=== PATIENT | female | born 1990 | race Caucasian/White ===

== ENCOUNTER 2016-12-06 20:18 | Emergency (ER) | payer MEDICAID ==
[~2016-12-06] VITALS: Ht 172.7 cm; Wt 61.0 kg
[~2016-12-06 20:18] MED LIST: IBUP600 PO; PERI8.6T PO; Z.0.NO CURRENT MEDS
[2016-12-06 20:19] VITALS: BP 125/78; PULSE 94; RESP 16; TEMP 98.2; O2SAT 98
[2016-12-06 20:25] VITALS: RESP 16; O2SAT 98
--- NOTE | 2016-12-06 20:54 | PD ---
HPI Chief Complaint: Abdominal Pain Time Seen by Provider: 20:37 Travel History International Travel<30 days: No Contact w/Intl Traveler<30days: No Traveled to known affect area: No History of Present Illness HPI The patient is a 26 year old female who presents to the [facility] emergency department with a history of abdominal pain that she reports has intermittently been present for months, however today was more persistent and gradually getting worse throughout the day. She denies any effect with eating. She reports that in the past she was diagnosed with liver inflammation as the cause related to hepatitis C. She reports that she is in the process of getting evaluated for treatment. She denies ever having an ultrasound of her gallbladder or liver in the past. The patient reports that she has a history of IV drug use. She has been clean for the last month however she did have one episode of relapse a few days ago. The patient reports that the pain is in the midepigastric area and radiates to bilateral upper quadrants of the abdomen. She reports the pain is sharp in character. The patient denies any known alleviating or aggravating factors. She denies having any recent history of acid reflux or heartburn. The patient denies having any constipation. She last moved her bowels earlier today. She denies having any change in the color of her stool. The patient denies having any jaundice per The patient denies any recent fevers, cough, congestion, neck pain, chest pain, shortness of breath , vomiting, diarrhea, urinary symptoms, or neurologic symptoms. LMP: Unknown, however the patient denies any possibility of being . She reports that her periods are irregular related to having an IUD placed. [facility] Past Medical History Narrative Medical The patient's past medical history is significant for IV drug use, currently clean for the last month. The patient has a history of hepatitis C. ?: Not LMP: IUD Past Surgical History Narrative Surgical The patient's past surgical history is reportedly none. Social History Alcohol Use: No Tobacco Use: No Substance Use: Yes (Dilaudid iv use last a few days ago with accidental relapse ) Allergies-Medications (Allergen,Severity, Reaction): Coded Allergies: No Known Allergies (Verified , 12/06/16) Reported Meds & Prescriptions Reported Meds & Active Scripts Active Yohana-Colace 8.6-50 mg (Sennosides-Docusate Sodium) 1 Tab Tab 2 Tab PO Q12H PRN Motrin 600 Mg Tab (Ibuprofen) 600 Mg Tab 600 Mg PO Q6H PRN Reported No Current Meds (Miscellaneous Medication) Misc Review of Systems Except as stated in HPI: all other systems reviewed are Neg General / Constitutional: No: Fever Eyes: No: Visual changes HENT: No: Headaches Cardiovascular: No: Chest Pain or Discomfort Respiratory: No: Shortness of Breath Gastrointestinal: Positive: Abdominal Pain, No: Nausea, Vomiting, Diarrhea, Hematemesis, Changes in Bowel Habits, Indigestion, Loss of Appetite Genitourinary: No: Dysuria Musculoskeletal: No: Pain Skin: No Rash Neurologic: No: Weakness Psychiatric: No: Depression Endocrine: No: Polydipsia Hematologic/Lymphatic: No: Easy Bruising Physical Exam Narrative General: The patient is a well-developed well-nourished female in no acute distress. Head and Neck exam: Head is normocephalic atraumatic. Eyes: EOMI, pupils are equal round and reactive to light. Nose: Midline septum with pink mucous membranes Mouth: Dentition unremarkable. Moist mucus membranes. Posterior oropharynx is not erythematous. No tonsillar hypertrophy. Uvula midline. Airway patent. Neck: No palpable lymphadenopathy. No nuchal rigidity. No thyromegaly. Cardiovascular: Regular rate and rhythm without murmurs, gallops, or rubs. Lungs: Clear to auscultation bilaterally. No wheezes, rhonchi, or rales. Abdomen: Soft, with tenderness on palpation of the midepigastric area and bilateral upper quadrants of the abdomen. No guarding, rebound, or rigidity. No tenderness on palpation of McBurney's point. Extremities: No clubbing, cyanosis, or edema. No calf tenderness on palpation. Back: No spinous process tenderness to palpation. No costovertebral angle tenderness to palpation. Neurologic Exam: Grossly nonfocal. Skin Exam: No rash noted. Intact skin that is warm and dry. Data Data Last Documented VS Vital Signs Date Time Temp Pulse Resp B/P Pulse Ox O2 Delivery O2 Flow Rate FiO2 12/06/16 20:25 16 98 Room Air 12/06/16 20:19 98.2 94 125/78 Orders Complete Blood Count With Diff (12/06/16 20:37) Comprehensive Metabolic Panel (12/06/16 20:37) C-Reactive Protein (Crp) (12/06/16 20:37) Lipase (12/06/16 20:37) Urinalysis - C+S If Indicated (12/06/16 20:37) Iv Access Insert/Monitor (12/06/16 20:37) Ecg Monitoring (12/06/16 20:37) Oximetry (12/06/16 20:37) Ed Urine Pregnancytest Poc (12/06/16 20:37) Us Abdomen Gallbladder (12/06/16 20:46) Sodium Chlor 0.9% 1000 Ml Inj (Ns 1000 M (12/06/16 21:00) Ondansetron Inj (Zofran Inj) (12/06/16 21:00) Pantoprazole Inj (Protonix Inj) (12/06/16 21:00) Labs Laboratory Tests Test 12/06/16 20:45 White Blood Count 12.3 TH/MM3 Red Blood Count 4.38 MIL/MM3 Hemoglobin 13.8 GM/DL Hematocrit 39.0 % Mean Corpuscular Volume 89.2 FL Mean Corpuscular Hemoglobin 31.5 PG Mean Corpuscular Hemoglobin 35.4 % Concent Red Cell Distribution Width 15.3 % Platelet Count 215 TH/MM3 Mean Platelet Volume 8.7 FL Neutrophils (%) (Auto) 69.1 % Lymphocytes (%) (Auto) 24.4 % Monocytes (%) (Auto) 5.4 % Eosinophils (%) (Auto) 0.6 % Basophils (%) (Auto) 0.5 % Neutrophils # (Auto) 8.5 TH/MM3 Lymphocytes # (Auto) 3.0 TH/MM3 Monocytes # (Auto) 0.7 TH/MM3 Eosinophils # (Auto) 0.1 TH/MM3 Basophils # (Auto) 0.1 TH/MM3 CBC Comment DIFF FINAL Differential Comment Sodium Level 140 MEQ/L Potassium Level 4.2 MEQ/L Chloride Level 105 MEQ/L Carbon Dioxide Level 27.0 MEQ/L Anion Gap 8 MEQ/L Blood Urea Nitrogen 11 MG/DL Creatinine 1.04 MG/DL Estimat Glomerular Filtration 65 ML/MIN Rate Random Glucose 88 MG/DL Calcium Level 9.1 MG/DL Total Bilirubin 0.4 MG/DL Aspartate Amino Transf 23 U/L (AST/SGOT) Alanine Aminotransferase 47 U/L (ALT/SGPT) Alkaline Phosphatase 52 U/L C-Reactive Protein LESS THAN 0.29 MG/DL Total Protein 7.9 GM/DL Albumin 4.0 GM/DL Lipase 177 U/L MDM Medical Decision Making Medical Screen Exam Complete: Yes Emergency Medical Condition: Yes Medical Record Reviewed: Yes Interpretation(s) Last Impressions Gall Bladder Ultrasound 12/06/162045 Signed Impressions: Service Date/Time: Tuesday, December 06, 2016 21:18 - CONCLUSION: Normal right upper quadrant ultrasound. Pasha Lewis MD Differential Diagnosis Worsening hepatic inflammation related to hepatitis C, versus biliary colic, versus pancreatitis, versus peptic ulcer disease, versus gastritis, versus acid reflux Narrative Course During the course of the patients emergency department visit, the patients history, examination, and differential diagnosis were reviewed with the patient. The patient had IV access obtained and blood work sent for analysis. The patient was placed on a court monitor with oximetry and blood pressure monitoring. An ultrasound of the liver/gallbladder has been ordered. The patient was provided normal saline 1 L IV fluid bolus, Zofran 4 mg IV, Protonix 40 mg IV. The patients laboratory studies were reviewed and remarkable for a white count 12.3, hemoglobin 13.8, platelets 2:15 with a normal differential, CMP is remarkable for creatinine of 1.04, lipase 177, C-reactive protein less than 0.29. Radiology studies were reviewed and remarkable for an ultrasound of the right upper quadrant that showed no acute abnormality. I suspect that the patient's symptoms are related to a component of gastritis given the location of the pain and the fact that otherwise her workup is unremarkable. The patient will be given a prescription for omeprazole. The patient was instructed to follow-up with her residential leasing agent as previously scheduled to start on her hepatitis C treatment. The patient is resting comfortably and feels better, is alert and in no distress. The patients results and examination findings were discussed with the patient. The repeat examination is unremarkable and benign. The history, exam, diagnostic testing, and current condition do not suggest any significant pathology to warrant further testing, continued ED treatment, admission, or surgical evaluation at this point. The vital signs have been stable. The patient does not have uncontrollable pain, intractable vomiting, or other significant symptoms. The patient's condition is stable and appropriate for discharge. The patient will pursue further outpatient evaluation with a primary care physician or other designated or consulting physician as indicated in the discharge instructions. The patient expressed understanding and was agreeable with this plan. Diagnosis Primary Impression: Abdominal pain Qualified Code: R10.13 - Epigastric pain Referrals: [facility] 1 week Primary Care Physician 3 days Patient Instructions: Abdominal Pain (ED), General Instructions Med/Other Pt SpecificInfo: Prescription(s) given Scripts Omeprazole 20 Mg Tab20 Mg PO DAILY #30 TAB Ref 0 Prov:Ilana Nava MD 12/06/16 Disposition: 01 DISCHARGE HOME Condition: Stable Ilana Nava MD Dec 06, 2016 20:54
[2016-12-06] MEDS ORDERED: ONDANSETRON HCL 4 MG/2 ML VIAL IV ONE (21:00)
[2016-12-06] MEDS ORDERED: PANTOPRAZOLE SODIUM 40 MG VIAL IV PUSH ONE (21:00)
[2016-12-06] MEDS ORDERED: SODIUM CHLOR 0.9% 1000 ML INJ 1,000 ML IV ONE (21:00)
[2016-12-06 21:06] LABS: AUTOMATED NEUTROPHIL # 8.5 TH/MM3 (1.8-7.7); BASOPHIL # 0.1 TH/MM3 (0-0.2); BASOPHIL % 0.5 % (0.0-2.0); EOSINOPHIL # 0.1 TH/MM3 (0-0.4); EOSINOPHIL % 0.6 % (0.0-4.0); HEMO FLAGS DIFF FINAL; LYMPH % 24.4 % (9.0-44.0); MEAN CELL VOLUME 89.2 FL (80.0-100.0); MEAN CORPUSCULAR HEMOGLOBIN 31.5 PG (27.0-34.0); MEAN CORPUSCULAR HGB CONC 35.4 % (32.0-36.0); MONO % 5.4 % (0.0-8.0); NEUT % 69.1 % (16.0-70.0); PLATELET COUNT 215 TH/MM3 (150-450); RED BLOOD COUNT 4.38 MIL/MM3 (4.00-5.30); RED CELL DISTRIBUTION WIDTH 15.3 % (11.6-17.2); WHITE BLOOD COUNT 12.3 TH/MM3 (4.0-11.0)
--- NOTE | 2016-12-06 21:50 | RADRPT ---
EXAM DATE/TIME: 12/06/2016 21:18 [facility] COMPARISON: No previous studies available for comparison. INDICATIONS : Right upper quadrant pain. MEDICAL HISTORY : Hepatitis C. Abdominal pain. IUD. IV drug abuse. SURGICAL HISTORY : None. ENCOUNTER: Initial ACUITY: 1 day PAIN SCORE: 7/10 LOCATION: Right upper quadrant MEASUREMENTS: LIVER: 16.8 cm length COMMON DUCT: 4 mm RIGHT KIDNEY: 10.4 x 4.2 x 5.1 cm FINDINGS: LIVER: Normal echotexture without focal lesion or ductal dilatation. COMMON DUCT: No intraluminal mass or stone visualized. GALLBLADDER: Contracted. No stones. No wall thickening or pericholecystic fluid. PANCREAS: The visualized portions are within normal limits. RIGHT KIDNEY: No evidence of hydronephrosis, stone, or mass. CONCLUSION: Normal right upper quadrant ultrasound. Pasha Lewis MD on December 06, 2016 at 21:48 Board Certified Radiologist. This report was verified electronically.
[2016-12-06 21:53] LABS: ALKALINE PHOSPHATASE 52 U/L (45-117); ALT (GPT) 47 U/L (10-53); ANION GAP 8 MEQ/L (5-15); AST (GOT) 23 U/L (15-37); BLOOD UREA NITROGEN 11 MG/DL (7-18); CHLORIDE 105 MEQ/L (98-107); GLOMERULAR FILTRATION RATE 65 ML/MIN (>89); SODIUM (NA) 140 MEQ/L (136-145); TOTAL BILIRUBIN ADULT 0.4 MG/DL (0.2-1.0)
[2016-12-06 21:57] LABS: POTASSIUM 4.2 MEQ/L (3.5-5.1)
[2016-12-06] MEDS ORDERED: OMEP20TA PO (22:39)
== END 2016-12-06 23:39 | disposition home or self-care (01) ==
LOC: NEPE 20:18
DX: R10.9 Unspecified abdominal pain (principal); B19.20 Unspecified viral hepatitis C without hepatic coma
CPT/HCPCS: 76705; 80053; 83690; 84703; 85025; 86140; 96361; 96374; 96375; 99284; C9113; J2405; J7030

== ENCOUNTER 2017-02-05 10:18 | Emergency (ER) | payer MEDICAID ==
[~2017-02-05] VITALS: Ht 172.7 cm; Wt 61.5 kg
[~2017-02-05 10:18] MED LIST changes: +OMEP20TA PO
[2017-02-05 10:19] VITALS: BP 128/75; PULSE 97; RESP 20; TEMP 98; O2SAT 99
[2017-02-05] MEDS ORDERED: KETOROLAC TROMETHAMINE 30 MG/ML (IVP) VIAL IV PUSH ONE (11:15)
--- NOTE | 2017-02-05 11:17 | PD ---
HPI Chief Complaint: Musculoskeletal Complaint Time Seen by Provider: 11:12 Travel History International Travel<30 days: No Contact w/Intl Traveler<30days: No Traveled to known affect area: No History of Present Illness HPI 26-year-old female presents to the emergency Department with complaint of low back pain for the last 3-4 months. History of IV drug use. Last used and injected Dilaudid one month ago. Is in a sober living house and has been clean for 1 month. The back pain is midline and right-sided. She denies fever, chills, nausea, vomiting. Denies abdominal pain, dysuria, urgency, frequency. Denies paresthesias, loss of sensation, decreased range of motion, decreased strength to bilateral lower extremities. Denies encopresis, incontinence, saddle anesthesias. Ambulatory with a normal gait. Reports feeling numbness and tingling in her right buttocks at times. Has been taking ibuprofen with some relief of pain. Pain is aggravated with movement and palpation. No known allergies. No other medical complaints. No other modifying factors or associated signs and symptoms. PFSH Past Medical History Hepatitis: Yes ?: Not Social History Alcohol Use: No Tobacco Use: Yes Substance Use: Yes (Dilaudid iv use last a few days ago with accidental relapse ) Allergies-Medications (Allergen,Severity, Reaction): Coded Allergies: No Known Allergies (Verified , 12/06/16) Reported Meds & Prescriptions Reported Meds & Active Scripts Active Omeprazole 20 Mg Tab 20 Mg PO DAILY Yohana-Colace 8.6-50 mg (Sennosides-Docusate Sodium) 1 Tab Tab 2 Tab PO Q12H PRN Motrin 600 Mg Tab (Ibuprofen) 600 Mg Tab 600 Mg PO Q6H PRN Reported No Current Meds (Miscellaneous Medication) [facility] Review of Systems Except as stated in HPI: all other systems reviewed are Neg Physical Exam Narrative GENERAL: Well-nourished, well-developed female patient, in no acute distress SKIN: Warm and dry. HEAD: Atraumatic. Normocephalic. EYES: Pupils equal and round. No scleral icterus. No injection or drainage. ENT: Mucosa pink and moist. Airway patent. NECK: Trachea midline. CARDIOVASCULAR: Regular rate. RESPIRATORY: No accessory muscle use. GASTROINTESTINAL: Flat. MUSCULOSKELETAL: Bilateral lower extremities supple and non-tense with 2+ pedal pulses and sensory intact; with full range of motion and 5/5 strength. Active dorsiflexion and extension of bilateral feet. Bilateral straight leg raise is positive for low back pain. Ambulatory with normal gait. Sitting up in bed at 90. No obvious deformities. No clubbing. No cyanosis. No edema. BACK: Midline point tenderness on palpation of the lumbar spine. Tenderness on palpation of right iliosacral area. No obvious deformities. NEUROLOGICAL: Awake and alert. Oriented 3. No obvious cranial nerve deficits. Motor grossly within normal limits. Normal speech. Moves all extremities. 5/5 strength to all extremities. Sensory intact. PSYCHIATRIC: Appropriate mood and affect; insight and judgment normal. Data Data Last Documented VS Vital Signs Date Time Temp Pulse Resp B/P Pulse Ox O2 Delivery O2 Flow Rate FiO2 02/05/17 10:19 98.0 97 20 128/75 99 Room Air MDM Medical Decision Making Medical Screen Exam Complete: Yes Emergency Medical Condition: Yes Medical Record Reviewed: Yes Differential Diagnosis Sciatica, low back pain, spinal abscess Narrative Course 26-year-old female with history of IV drug use with midline point tenderness on palpation of the lumbar spine and with complaint of low back pain for the last 3 -4 months. Last injected Dilaudid one month ago. Is currently in a sober living house and has been clean for 1 month. Denies fever, chills, nausea, vomiting. Denies encopresis, incontinence, saddle anesthesias. Patient is ambulatory in the room with normal gait. I discussed the patient with my attending physician, Dr. Delgado, and he recommended MRI to rule out spinal abscess secondary to IV drug use. Patient will be moved to a medical bed for further treatment and evaluation. CBC, BMP, ESR, CRP ordered. Urine ordered. MRI of the lumbar, thoracic, cervical spine ordered. Toradol ordered. 1115: Patient moved to medical bed and Dr. Delgado will assume care of the patient at this time. See his note for final disposition. Maribel Kessler Feb 05, 2017 11:16
[2017-02-05 12:01] LABS: AUTOMATED NEUTROPHIL # 3.8 TH/MM3 (1.8-7.7); BASOPHIL % 0.6 % (0.0-2.0); EOSINOPHIL # 0.1 TH/MM3 (0-0.4); EOSINOPHIL % 1.2 % (0.0-4.0); HEMATOCRIT 39.6 % (35.0-46.0); HEMO FLAGS DIFF FINAL; LYMPH % 31.9 % (9.0-44.0); MEAN CELL VOLUME 91.1 FL (80.0-100.0); MEAN CORPUSCULAR HEMOGLOBIN 31.6 PG (27.0-34.0); MEAN CORPUSCULAR HGB CONC 34.7 % (32.0-36.0); MONO % 5.5 % (0.0-8.0); NEUT % 60.8 % (16.0-70.0); PLATELET COUNT 151 TH/MM3 (150-450); RED BLOOD COUNT 4.34 MIL/MM3 (4.00-5.30); RED CELL DISTRIBUTION WIDTH 13.9 % (11.6-17.2); WHITE BLOOD COUNT 6.3 TH/MM3 (4.0-11.0)
[2017-02-05 12:14] LABS: BLOOD, URINE NEG (NEG); GLUCOSE,URINE NEG (NEG); KETONE, URINE NEG (NEG); PH, URINE 7.5 (5.0-8.5); SQUAMOUS EPITHELIAL CELL URINE 1 /hpf (0-5); TRANSITIONAL EPI CELLS, URINE <1 /hpf; URINE COLOR YELLOW (YELLW/STRAW)
[2017-02-05 12:19] LABS: NITRITE,URINE POS (NEG)
[2017-02-05 12:20] LABS: BACTERIA, URINE MOD /hpf; COMMENT (UR) CULTURE INDICATED; CULTURE IF INDICATED CULTURE INDICATED
[2017-02-05 12:22] LABS: ANION GAP 4 MEQ/L (5-15); BICARBONATE 29.7 MEQ/L (21.0-32.0); BLOOD UREA NITROGEN 10 MG/DL (7-18); CHLORIDE 105 MEQ/L (98-107); GLOMERULAR FILTRATION RATE 79 ML/MIN (>89); POTASSIUM 4.1 MEQ/L (3.5-5.1); SODIUM (NA) 139 MEQ/L (136-145)
--- NOTE | 2017-02-05 13:55 | RADRPT ---
EXAM DATE/TIME: 02/05/2017 12:27 [facility] COMPARISON: No previous studies available for comparison. INDICATIONS : Low back and Right leg pain. CONTRAST: 10 cc Omniscan (gadodiamide) IV MEDICAL HISTORY : IVDA. SURGICAL HISTORY : None. ENCOUNTER: Initial ACUITY: 1 day PAIN SCORE: 6/10 LOCATION: [facility] TECHNIQUE: Screening MRI of the entire spinal axis was performed in the sagittal and axial planes. FINDINGS: No focal bone lesion is seen. The vertebral bodies are normal in height. There is normal alignment in the sagittal plane. It is producing dextrocurvature of the upper thoracic spine and levocurvature of the lower thoracic spine. There does appear to be a dextrocurvature of the thoracolumbar region. The re is a right lateral recess disc protrusion at the L5-S1 level. This abuts the right S1 nerve root i n the lateral recess region. CONCLUSION: Right lateral recess disc protrusion at the L5-S1 level abutting the right S1 nerve root. A screening MRI examination is typically used to evaluate diffuse bony processes. Pasha Vicente MD on February 05, 2017 at 13:46 Board Certified Radiologist. This report was verified electronically.
[2017-02-05] MEDS ORDERED: GADODIAMIDE PF 287 MG/ML 10 ML VIAL (for RAD MRI) IV ONE (14:15)
--- NOTE | 2017-02-05 14:19 | PD ---
Data Data Last Documented VS Vital Signs Date Time Temp Pulse Resp B/P Pulse Ox O2 Delivery O2 Flow Rate FiO2 02/05/17 10:19 98.0 97 20 128/75 99 Room Air Orders Basic Metabolic Panel (Bmp) (02/05/17 11:08) Complete Blood Count With Diff (02/05/17 11:08) Westergren Sedimentation Rate (02/05/17 11:08) C-Reactive Protein (Crp) (02/05/17 11:08) Ketorolac Inj (Toradol Inj) (02/05/17 11:15) Iv Access Insert/Monitor (02/05/17 11:08) Ed Urine Pregnancytest Poc (02/05/17 11:08) Urinalysis - C+S If Indicated (02/05/17 11:17) Urine Culture (02/05/17 11:25) Mri Screening Spine W&W/O Cont (02/05/17 ) Gadodiamide Pf Inj (Omniscan Pf Inj) (02/05/17 14:15) Labs Laboratory Tests Test 02/05/17 02/05/17 11:25 11:30 Urine Color YELLOW Urine Turbidity CLEAR Urine pH 7.5 Urine Specific [place] 1.010 Urine Protein NEG mg/dL Urine Glucose (UA) NEG mg/dL Urine Ketones NEG mg/dL Urine Occult Blood NEG Urine Nitrite POS Urine Bilirubin NEG Urine Urobilinogen LESS THAN 2.0 MG/DL Urine Leukocyte Esterase NEG Urine RBC 2 /hpf Urine WBC 2 /hpf Urine Squamous Epithelial 1 /hpf Cells Urine Transitional Epithelial <1 /hpf Cells Urine Bacteria MOD /hpf Microscopic Urinalysis Comment CULTURE INDICATED White Blood Count 6.3 TH/MM3 Red Blood Count 4.34 MIL/MM3 Hemoglobin 13.7 GM/DL Hematocrit 39.6 % Mean Corpuscular Volume 91.1 FL Mean Corpuscular Hemoglobin 31.6 PG Mean Corpuscular Hemoglobin 34.7 % Concent Red Cell Distribution Width 13.9 % Platelet Count 151 TH/MM3 Mean Platelet Volume 9.1 FL Neutrophils (%) (Auto) 60.8 % Lymphocytes (%) (Auto) 31.9 % Monocytes (%) (Auto) 5.5 % Eosinophils (%) (Auto) 1.2 % Basophils (%) (Auto) 0.6 % Neutrophils # (Auto) 3.8 TH/MM3 Lymphocytes # (Auto) 2.0 TH/MM3 Monocytes # (Auto) 0.3 TH/MM3 Eosinophils # (Auto) 0.1 TH/MM3 Basophils # (Auto) 0.0 TH/MM3 CBC Comment DIFF FINAL Differential Comment Erythrocyte Sedimentation Rate 8 mm/hr Sodium Level 139 MEQ/L Potassium Level 4.1 MEQ/L Chloride Level 105 MEQ/L Carbon Dioxide Level 29.7 MEQ/L Anion Gap 4 MEQ/L Blood Urea Nitrogen 10 MG/DL Creatinine 0.88 MG/DL Estimat Glomerular Filtration 79 ML/MIN Rate Random Glucose 126 MG/DL Calcium Level 9.1 MG/DL C-Reactive Protein LESS THAN 0.29 MG/DL MDM Supervised Visit with KIRA: Yes Narrative Course Patient care assumed by me from Sheila Espinal [facility]. Patient was moved to the [facility] from [facility]. The patient has had some low back pain but does have a history of IV drug use. Denies any fevers. The patient did have some midline tenderness for carry out in triage and an MRI was ordered. MRI results were reviewed and show: Last 24 hours Impressions Entire Spine MRI 02/05/17 0000 Signed Impressions: Service Date/Time: Sunday, February 05, 2017 12:27 - CONCLUSION: Right lateral recess disc protrusion at the L5-S1 level abutting the right S1 nerve root. A screening MRI examination is typically used to evaluate diffuse bony processes. Pasha Vicente MD I discussed the results with the patient on my exam the patient actually has tenderness at the SI joint and sciatic symptoms down the right lower extremity. This could be consistent with simple sciatica. Her ESR and CRP undetectable. There is no indication for further workup in the emergency department at this time. She is following up with a chiropractor and I recommend that she follow up with primary care physician as well. She will be prescribed steroids. She had incidental finding of urinary tract infection will be prescribed Keflex. She stable for discharge at this time. Diagnosis Primary Impression: Low back pain with sciatica Additional Impression: Urinary tract infection Referrals: Suresh Rosas MD Med/Other Pt SpecificInfo: Prescription(s) given Scripts Cephalexin (Keflex)500 Mg [id number] Mg PO Q6H 5 Days Ref 0 Prov:Rodo Delgado MD 02/05/17 Ibuprofen 600 Mg [id number] Mg PO Q6H PRN (Pain/Inflammation) #40 TAB Ref 0 Prov:Rodo Delgado MD 02/05/17 Prednisone 20 Mg Tab60 Mg PO DAILY 5 Days Ref 0 Prov:Rodo Delgado MD 02/05/17 Disposition: 01 DISCHARGE HOME Condition: Stable Rodo Delgado MD Feb 05, 2017 14:19
[2017-02-05] MEDS ORDERED: PRED20 PO (15:01)
[2017-02-05] MEDS ORDERED: IBUP-232 PO (15:01)
[2017-02-05] MEDS ORDERED: CEPH-460 PO (15:01)
== END 2017-02-05 15:31 | disposition home or self-care (01) ==
LOC: NEPD 10:18
DX: M54.41 Lumbago with sciatica, right side (principal); N39.0 Urinary tract infection, site not specified; B96.20 Unspecified Escherichia coli [E. coli] as the cause of diseases classified elsewhere
CPT/HCPCS: 72156; 72158; 80048; 81001; 84703; 85025; 85652; 86140; 87077; 87086; 87186; 96374; 99284; A9579; J1885

== ENCOUNTER 2017-03-30 13:35 | Emergency (ER) | payer SELFPAY ==
[~2017-03-30 13:35] MED LIST changes: +CEPH-460 PO; +IBUP-232 PO; -IBUP600 PO; -OMEP20TA PO; -PERI8.6T PO; +PRED20 PO; -Z.0.NO CURRENT MEDS
[2017-03-30 13:38] VITALS: BP 108/68; PULSE 90; RESP 18; TEMP 98.2; O2SAT 98
--- NOTE | 2017-03-30 14:06 | PD ---
Physical Exam Time Seen by Provider: 14:05 Narrative 27yo F c/o low back pain after slipping and twisting R leg at work today. Is also concerned she is . Patient seen in triage. VS reviewed. Awaiting bed placement. Data Data Last Documented VS Vital Signs Date Time Temp Pulse Resp B/P Pulse Ox O2 Delivery O2 Flow Rate FiO2 03/30/17 13:38 98.2 90 18 108/68 98 Room Air MDM Supervised Visit with KIRA: Maribel Jules Mar 30, 2017 14:06
--- NOTE | 2017-03-30 15:17 | PD ---
HPI . Sciatica Chief Complaint: Pain: Acute or Chronic Time Seen by Provider: 14:12 Travel History International Travel<30 days: No Contact w/Intl Traveler<30days: No Traveled to known affect area: No History of Present Illness HPI Patient presents with the chief complaint of sciatica involving her right leg. Patient reports a known history of same. She states that she has had a previous MRI which shows a bulging disc. She states that she had been doing pretty well until today when she twisted abnormally at work. This caused an acute exacerbation of her pain. She describes numbness in her right lower extremity. She rates her back pain as 6/10 and states that it is constant. It is exacerbated by movement. In addition, the patient is concerned that she might be . Her last normal menstrual period was March 11. Furthermore, she thinks that she will not have a urinary tract infection. She is complaining with dysuria and possible hematuria along with malodorous urine for the last several weeks. She states that she has not been doing anything at home to try to treat this such as cranberry juice, AZO, increased fluids. The patient reports that she is a recovering drug addict. PFSH Past Medical History Diminished Hearing: No Hepatitis: Yes Musculoskeletal: Yes (BACK PAIN HX ) Tetanus Vaccination: < 5 Years Influenza Vaccination: No ?: Not LMP: 03/11/17 : 3 Para: 2 Miscarriage: 1 : 0 Past Surgical History Surgical History: No Previous Surgery Social History Alcohol Use: No Tobacco Use: Yes (4 - 5 CIGARRETTES PER DAY) Substance Use: No (PT DENIES ) Allergies-Medications (Allergen,Severity, Reaction): Coded Allergies: No Known Allergies (Verified , 03/30/17) Reported Meds & Prescriptions Reported Meds & Active Scripts Active No Active Prescriptions or Reported Medications Review of Systems Except as stated in HPI: all other systems reviewed are Neg General / Constitutional: No: Fever, Chills Genitourinary: Positive: Frequency, Dysuria, Hematuria Musculoskeletal: Positive: Other Neurologic: Positive: Paresthesia (low back pain), No: Weakness, Focal Abnormalities, Incontinence Physical Exam Narrative GENERAL: Patient is awake and alert and resting comfortably on the stretcher. SKIN: Warm and dry. HEAD: Atraumatic. Normocephalic. EYES: Pupils equal and round. ENT: No nasal bleeding or discharge. Mucous membranes pink and moist. NECK: Trachea midline. CARDIOVASCULAR: Regular rate and rhythm. RESPIRATORY: No accessory muscle use. GASTROINTESTINAL: Abdomen soft, non-tender, nondistended. MUSCULOSKELETAL: No obvious deformities. No edema. Tender to palpation in the low back. Straight leg raise on the right pain at about 45. Straight leg raise on the left is negative. NEUROLOGICAL: Awake and alert. No obvious cranial nerve deficits. Motor grossly within normal limits. Normal speech. PSYCHIATRIC: Appropriate mood and affect; insight and judgment normal. Data Data Last Documented VS Vital Signs Date Time Temp Pulse Resp B/P Pulse Ox O2 Delivery O2 Flow Rate FiO2 03/30/17 14:25 17 03/30/17 13:38 98.2 90 108/68 98 Room Air Orders Urinalysis - C+S If Indicated (03/30/17 14:34) Ed Urine Pregnancytest Poc (03/30/17 14:34) Urine Culture (03/30/17 14:40) Labs Laboratory Tests Test 03/30/17 14:40 Urine Color YELLOW Urine Turbidity HAZY Urine pH 7.0 Urine Specific Bradford 1.021 Urine Protein NEG mg/dL Urine Glucose (UA) NEG mg/dL Urine Ketones NEG mg/dL Urine Occult Blood NEG Urine Nitrite NEG Urine Bilirubin NEG Urine Urobilinogen LESS THAN 2.0 MG/DL Urine Leukocyte Esterase TRACE Urine RBC 6 /hpf Urine WBC 4 /hpf Urine Squamous Epithelial 19 /hpf Cells Urine Amorphous Sediment RARE Urine Bacteria MANY /hpf Urine Mucus FEW /lpf Microscopic Urinalysis Comment CULTURE INDICATED MDM Medical Decision Making Medical Screen Exam Complete: Yes Emergency Medical Condition: Yes Differential Diagnosis Differential diagnosis of leg pain includes but is not limited to lumbar radiculopathy, arthritis, myalgias, DVT. Narrative Course Patient presents for sciatica. In addition, she will not be checked for and urinary tract infection. HCG negative. UA>>nitrite neg, LE trace, WBC 4, bact many. Diagnosis Primary Impression: Low back pain with sciatica Qualified Code: M54.41 - Acute right-sided low back pain with right-sided sciatica Additional Impression: UTI (urinary tract infection) Qualified Code: N30.00 - Acute cystitis without hematuria Patient Instructions: General Instructions, Sciatica (DC), Urinary Tract Infection in Women (DC) Med/Other Pt SpecificInfo: Prescription(s) given Scripts Nitrofurantoin Monohydrate Macrocrystals (Macrobid)100 Mg [id number] Mg PO BID 3 Days Ref 0 Prov:Lorena Ching MD 03/30/17 Prednisone (48) 10 mg tab Dose Pack 10 Mg [id number] Mg PO DIRECTED #1 DSPK Ref 0 Prov:Lorena Ching MD 03/30/17 Disposition: 01 DISCHARGE HOME Condition: Stable Lorena Ching MD Mar 30, 2017 15:17
[2017-03-30 15:41] LABS: BACTERIA, URINE MANY /hpf; BLOOD, URINE NEG (NEG); COMMENT (UR) CULTURE INDICATED; CULTURE IF INDICATED CULTURE INDICATED; GLUCOSE,URINE NEG (NEG); KETONE, URINE NEG (NEG); MUCUS URINE FEW /lpf (OCC); NITRITE,URINE NEG (NEG); SQUAMOUS EPITHELIAL CELL URINE 19 /hpf (0-5); URINE COLOR YELLOW (YELLW/STRAW)
[2017-03-30] MEDS ORDERED: PRED10PA2 PO (15:49)
[2017-03-30] MEDS ORDERED: MACR100C2 PO (15:49)
== END 2017-03-30 15:59 | disposition home or self-care (01) ==
LOC: NEPD 13:35
DX: M54.41 Lumbago with sciatica, right side (principal); N30.00 Acute cystitis without hematuria; B96.20 Unspecified Escherichia coli [E. coli] as the cause of diseases classified elsewhere
CPT/HCPCS: 81001; 84703; 87077; 87086; 87186; 96374

== ENCOUNTER 2017-11-06 14:16 | Emergency (ER) | payer SELFPAY | END 2017-11-06 18:40 | disposition home or self-care (01) | LOC: NEPJ 14:16 | DX: F11.10 Opioid abuse, uncomplicated (principal); F17.210 Nicotine dependence, cigarettes, uncomplicated | CPT/HCPCS: 99284 ==